=== PATIENT | female | born 1995 ===

== ENCOUNTER 2016-08-05 20:12 | Emergency (ER) | payer SELFPAY ==
[2016-08-05 20:28] VITALS: BP 115/69; PULSE 70; RESP 18; TEMP 96.2; O2SAT 100
--- NOTE | 2016-08-05 21:18 | ED PDOC ---
HPI: Abdomen Time Seen by Provider: 08/05/16 20:50 Chief Complaint (Nursing): Abdominal Pain Chief Complaint (Provider): Abdominal Pain History Per: Patient History/Exam Limitations: no limitations Onset/Duration Of Symptoms: Hrs (x5) Outside of [place] travel?: No Current Symptoms Are (Timing): Still Present Severity: Moderate Location Of Pain/Discomfort: RLQ Quality Of Discomfort: Other (nonradiating) Associated Symptoms: denies: Nausea, Vomiting Last Bowel Movement: Today (normal) Additional Complaint(s): Andrew Gupta is a 21 year old female, healthy with no pertinent past medical history, who presents to the ED on 08/05/16 for the evaluation of moderate RLQ abdominal pain that she has experienced for approximately 5 hours. Pain, further described as non-radiating, had reportedly started while the patient was at rest. Denies nausea, vomiting or urinary symptoms and reports that her bowel movements have been normal. Of note, patient has a secondary complaint of a mild headache but states that she gets similar headaches often. PMD: none Past Medical History Reviewed: Historical Data, Nursing Documentation, Vital Signs Vital Signs: Last Vital Signs Temp 96.2 F L 08/05/16 20:26 Pulse 70 08/05/16 20:26 Resp 18 08/05/16 20:26 BP 115/69 08/05/16 20:26 Pulse Ox 100 08/06/16 00:25 - Medical History PMH: No Chronic Diseases - Surgical History Surgical History: No Surg Hx - Family History Family History: States: Unknown Family Hx - Social History Current smoker - smoking cessation education provided: No Alcohol: Social Drugs: Denies - Home Medications Home Medications: Ambulatory Orders Medication Instructions Recorded Acetaminophen [Tylenol] 1,000 mg PO PRN PRN 03/22/15 Ibuprofen [Motrin] 600 mg PO Q6 PRN #20 tab 03/22/15 Metoclopramide Hydrochloride 10 mg PO TID PRN #10 tab 03/22/15 [Reglan] Acetaminophen with Codeine 1 each PO Q6H PRN #15 tablet 11/29/15 [Tylenol with Codeine #3 Tablet] Ibuprofen 600 mg PO Q6H PRN #20 tab 11/29/15 Albuterol HFA [Ventolin HFA 90 1 puff IH Q4 PRN #1 inh 02/22/16 mcg/actuation (8 g)] Fluticasone Nasal [Flonase] 1 actuation NS BID #1 bottle 02/22/16 Ibuprofen [Motrin Tab] 1 tab PO Q6 PRN #15 tab 02/22/16 Oseltamivir [Tamiflu] 75 mg PO BID #9 cap 02/22/16 guaiFENesin/Dextromethorphan 1 - 2 tab PO Q12 #20 tab 02/22/16 [guaiFENesin/DM 600-30 mg] Promethazine HCl/Codeine 5 ml PO Q6H PRN #200 ml 05/26/16 [Prometh-Codein 6.25-10 mg/5 ml] Cyclobenzaprine [Cyclobenzaprine 10 mg PO BID #15 tab 08/06/16 HCl] Ibuprofen [Motrin Tab] 600 mg PO Q6 #30 tab 08/06/16 - Allergies Allergies/Adverse Reactions: Allergies Allergy/AdvReac Type Severity Reaction Status Date / Time No Known Allergies Allergy Verified 03/22/15 05:26 Review of Systems ROS Statement: Except As Marked, All Systems Reviewed And Found Negative Gastrointestinal: Positive for: Abdominal Pain (RLQ, nonradiating). Negative for: Nausea, Vomiting Genitourinary Female: Negative for: Dysuria, Frequency, Hematuria Neurological: Positive for: Headache (mild) Physical Exam - Reviewed Nursing Documentation Reviewed: Yes Vital Signs Reviewed: Yes - Physical Exam Appears: Positive for: Non-toxic, No Acute Distress Head Exam: Positive for: ATRAUMATIC, NORMOCEPHALIC Skin: Positive for: Normal Color, Warm, Dry Cardiovascular/Chest: Positive for: Regular Rate, Rhythm. Negative for: Murmur Respiratory: Positive for: Normal Breath Sounds. Negative for: Respiratory Distress Gastrointestinal/Abdominal: Positive for: Soft, Tenderness (mild RLQ) Pelvic Exam: Positive for: External Exam Normal, Tender Adnexa (right), Other ( exam chaperoned by Zulma Francisco RN) Back: Positive for: Normal Inspection Neurologic/Psych: Positive for: Alert, Oriented - Laboratory Results Result Diagrams: 08/05/16 21:15 08/05/16 21:15 - ECG O2 Sat by Pulse Oximetry: 100 (RA) Pulse Ox Interpretation: Normal Medical Decision Making Medical Decision Makin:50 Initial Impression: ovarian cyst vs ovarian cyst rupture, less likely ovarian torsion, appendicitis Initial Plan: * Transvaginal US * Labs * Upreg * Udip * Urinalysis * Toradol 30mg IVP * Reevaluation 3: US impression: No acute pathology. No solid pelvic mass. No abnormal fluid collections. A small simple right ovarian cyst (13 mm size) is noted. There is no evidence of ovarian torsion. 7: CT A/P impression: 1. No CT evidence of appendicitis. 0022: Patient feels better and instructed to f/u at [facility]. Scribe Attestation: Documented by Jane Alfaro, acting as a scribe for Gold Mccarthy MD. Provider Scribe Attestation: All medical record entries made by the Scribe were at my direction and personally dictated by me. I have reviewed the chart and agree that the record accurately reflects my personal performance of the history, physical exam, medical decision making, and the department course for this patient. I have also personally directed, reviewed, and agree with the discharge instructions and disposition. Disposition - Clinical Impression Clinical Impression: Abdominal pain, Ovarian cyst - Patient ED Disposition Is Patient to be Admitted: No - Disposition [facility]errals: [facility] [Provider Group] Disposition: Routine/Home Disposition Time: 00:22 Condition: IMPROVED Prescriptions: Cyclobenzaprine [Cyclobenzaprine HCl] 10 mg PO BID #15 tab Ibuprofen [Motrin Tab] 600 mg PO Q6 #30 tab Instructions: Ovarian Cyst (ED), Abdominal Pain (ED) Forms: [facility] ED School/Work Excuse
[2016-08-05 21:31] LABS: BASO % 0.5 % (0.0-2.0); EOS # 0.1 K/uL (0.0-0.7); EOS % 0.8 % (0.0-4.0); HEMATOCRIT 40.2 % (34.0-47.0); LYMPH # 2.3 K/uL (1.0-4.3); LYMPH % 23.5 % (20.0-40.0); MEAN CELL VOLUME 92.8 fl (81.0-99.0); MEAN CORPUSCULAR HEMOGLOBIN 31.4 pg (27.0-31.0); MEAN CORPUSCULAR HGB CONC 33.8 g/dL (33.0-37.0); MEAN PLATELET VOLUME 9.1 fl (7.2-11.7); MONO # 0.9 K/uL (0.0-0.8); MONO % 9.2 % (0.0-10.0); NEUT # 6.4 K/uL (1.8-7.0); NRBC % 0.1 % (0.0-0.0); RED CELL DISTRIBUTION WIDTH 14.7 % (11.5-14.5); WHITE BLOOD COUNT 9.8 K/uL (4.8-10.8)
[2016-08-05 21:39] LABS: RBC URINE 3 /hpf (0-3); URINE BACTERIA RARE (<OCC); URINE BILIRUBIN NEGATIVE (NEGATIVE); URINE BLOOD NEGATIVE (NEGATIVE); URINE COLOR YELLOW (YELLOW); URINE GLUCOSE (UA) NEG (Normal); URINE KETONE TRACE mg/dL (NEGATIVE); URINE LEUKOCYTE ESTERASE MOD Leu/uL (Negative); URINE PROTEIN NEGATIVE (NEGATIVE); WBC URINE 3 /hpf (0-5)
[2016-08-05 21:48] LABS: ALB/GLOB RATIO 1.5 (1.0-2.1); ALKALINE PHOSPHATASE 90 U/L (38-126); ALT/SGPT 22 U/L (9-52); AST/SGOT 24 U/L (14-36); BILIRUBIN,TOTAL 0.5 mg/dl (0.2-1.3); BLOOD UREA NITROGEN 12 mg/dl (7-17); CALCIUM 9.6 mg/dL (8.4-10.2); CARBON DIOXIDE 26 mmol/L (22-30); CHLORIDE 102 mmol/L (98-107); GFR AFRICAN-AMERICAN > 60; GLUCOSE,RANDOM 92 mg/dL (65-105); POTASSIUM 3.6 MMOL/L (3.6-5.0); SODIUM 141 mmol/l (132-148); TOTAL PROTEIN 7.1 G/DL (6.3-8.2)
[2016-08-05] MEDS ORDERED: Iohexol 300 100 ML IJ ONE (23:13)
[2016-08-05] MEDS ORDERED: Sodium Chloride 0.9% 50 ML IV ONE (23:13)
--- NOTE | 2016-08-05 23:57 | CT ---
EXAM: CT Abdomen and Pelvis With Intravenous Contrast CLINICAL HISTORY: 21 years old, female; Pain; Abdominal pain; Localized; Right lower quadrant (rlq); Additional info: Rlq pain, R/O appendicitis. Sent ed physician doc. With request TECHNIQUE: Axial computed tomography images of the abdomen and pelvis with intravenous contrast. This CT exam was performed using one or more of the following dose reduction techniques: automated exposure control, adjustment of the mA and/or kV according to patient size, and/or use of iterative reconstruction technique. Coronal and sagittal reformatted images were created and reviewed. CONTRAST: 90 mL of [id number] administered intravenously. COMPARISON: US - TRANSVAGINAL 08/05/2016 9:52:54 PM FINDINGS: Lower thorax: Minimal atelectasis. ABDOMEN: Liver: Unremarkable. No mass. Gallbladder and bile ducts: No calcified stones. No ductal dilation. Pancreas: No ductal dilation. No mass. Spleen: No splenomegaly. Adrenals: No mass. Kidneys and ureters: No mass. No hydronephrosis. Stomach and bowel: No definite mural thickening. No obstruction. Appendix: Normal caliber. No inflammation. PELVIS: Bladder: Unremarkable. Reproductive: Unremarkable as visualized ABDOMEN and PELVIS: Intraperitoneal space: Small free fluid within pelvis. No free air. Bones/joints: No acute fracture. Soft tissues: Tiny umbilical hernia containing fat. Vasculature: Unremarkable. No abdominal aortic aneurysm. Lymph nodes: Few subcentimeter short axis mesenteric lymph nodes, nonspecific. IMPRESSION: 1. No CT evidence of appendicitis. 2. Incidental/non-acute findings are described above.
--- NOTE | 2016-08-06 08:54 | US ---
Pelvic ultrasound History: Right lower quadrant pain. Comparison: CT from performed on the same day. Technique: Transvaginal ultrasonography of the pelvis. Findings: The uterus is anteverted and measures 8 x 5 x 4.5 centimeters. No intrauterine gestational sac identified. The endometrium is unremarkable in appearance and measures approximately 6-7 millimeters. (Please correlate with patient's menstrual cycle). Few nabothian cysts in the cervix. Otherwise no definite cervical abnormality identified. The right ovary measures 3.5 x 3.4 x 2.4 centimeters. The left ovary measures 3.3 x 3.1 x 2.3 centimeters. Normal Doppler flow seen. Prominent follicle versus cyst measuring 1.4 centimeters in the right ovary. No significant free fluid in the cul-de-sac. Impression: No evidence of acute ovarian torsion. No intrauterine gestational sac. Please note that this evaluation is predicated on negative status.
== END 2016-08-06 00:31 | disposition home or self-care (01) ==
LOC: H.ER 20:12
DX: N83.209 Unspecified ovarian cyst, unspecified side (principal); R10.31 Right lower quadrant pain
CPT/HCPCS: 74177; 76830; 80053; 81003; 81025; 85025; 96374; 99283; J1885; Q9967

== ENCOUNTER 2016-09-13 21:18 | Emergency (ER) | payer SELFPAY ==
[2016-09-13 21:52] VITALS: BP 110/71; PULSE 88; RESP 18; TEMP 98.5; O2SAT 100
--- NOTE | 2016-09-13 22:05 | ED PDOC ---
HPI: CCC, URI, Sore Throat Time Seen by Provider: 09/13/16 21:49 Chief Complaint (Nursing): Cough, Cold, Congestion Chief Complaint (Provider): Cough, runny nose, watery eyes x 1 days History Per: Patient History/Exam Limitations: no limitations Have you had recent travel within the past 21 days to any of the following countries: [place], [place], [place] or [place]?: No Onset/Duration Of Symptoms: Days (1) Current Symptoms Are (Timing): Still Present Associated Symptoms: Sore Throat, Cough, Myalgias, Nasal Congestion. denies: Fever, Chills, Sputum, Vomiting, Diarrhea Ear Symptoms: Bilateral: None Past Medical History Reviewed: Historical Data, Nursing Documentation, Vital Signs Vital Signs: Last Vital Signs Temp 98.5 F 09/13/16 21:48 Pulse 88 09/13/16 21:48 Resp 18 09/13/16 21:48 BP 110/71 09/13/16 21:48 Pulse Ox 100 09/13/16 21:48 - Medical History PMH: No Chronic Diseases Denies: Diabetes, Hepatitis, HIV, HTN, Seizures, Sexually Transmitted Disease - Surgical History Surgical History: No Surg Hx - Family History Family History: States: Unknown Family Hx - Home Medications Home Medications: Ambulatory Orders Medication Instructions Recorded Acetaminophen [Tylenol] 1,000 mg PO PRN PRN 03/22/15 Ibuprofen [Motrin] 600 mg PO Q6 PRN #20 tab 03/22/15 Metoclopramide Hydrochloride 10 mg PO TID PRN #10 tab 03/22/15 [Reglan] Acetaminophen with Codeine 1 each PO Q6H PRN #15 tablet 11/29/15 [Tylenol with Codeine #3 Tablet] Ibuprofen 600 mg PO Q6H PRN #20 tab 11/29/15 Albuterol HFA [Ventolin HFA 90 1 puff IH Q4 PRN #1 inh 02/22/16 mcg/actuation (8 g)] Fluticasone Nasal [Flonase] 1 actuation NS BID #1 bottle 02/22/16 Ibuprofen [Motrin Tab] 1 tab PO Q6 PRN #15 tab 02/22/16 Oseltamivir [Tamiflu] 75 mg PO BID #9 cap 02/22/16 guaiFENesin/Dextromethorphan 1 - 2 tab PO Q12 #20 tab 02/22/16 [guaiFENesin/DM 600-30 mg] Promethazine HCl/Codeine 5 ml PO Q6H PRN #200 ml 05/26/16 [Prometh-Codein 6.25-10 mg/5 ml] Cyclobenzaprine [Cyclobenzaprine 10 mg PO BID #15 tab 08/06/16 HCl] Ibuprofen [Motrin Tab] 600 mg PO Q6 #30 tab 08/06/16 Fexofenadine/Pseudoephedrine 1 each PO BID PRN #12 tab.er.12h 09/13/16 [Nu-D 12 Hour Tablet] Prednisone 50 mg PO ONCE #3 tablet 09/13/16 - Allergies Allergies/Adverse Reactions: Allergies Allergy/AdvReac Type Severity Reaction Status Date / Time No Known Allergies Allergy Verified 09/13/16 21:48 Review of Systems ROS Statement: Except As Marked, All Systems Reviewed And Found Negative ENT: Positive for: Nose Congestion, Throat Pain. Negative for: Ear Pain, Nose Pain Respiratory: Positive for: Cough Physical Exam - Reviewed Nursing Documentation Reviewed: Yes Vital Signs Reviewed: Yes - Physical Exam Appears: Positive for: Well, Non-toxic, No Acute Distress Head Exam: Positive for: ATRAUMATIC, NORMAL INSPECTION, NORMOCEPHALIC Skin: Positive for: Normal Color, Warm, DRY Eye Exam: Positive for: EOMI, Normal appearance, PERRL ENT: Positive for: Normal ENT Inspection Neck: Positive for: Normal, Painless ROM Cardiovascular/Chest: Positive for: Regular Rate, Rhythm Respiratory: Positive for: CNT, Normal Breath Sounds Gastrointestinal/Abdominal: Positive for: Normal Exam, Bowel Sounds, Soft Back: Positive for: Normal Inspection Extremity: Positive for: Normal ROM Neurologic/Psych: Positive for: Alert, Oriented - ECG O2 Sat by Pulse Oximetry: 100 Disposition - Clinical Impression Clinical Impression: Viral respiratory illness - Patient ED Disposition Is Patient to be Admitted: No Counseled Patient/Family Regarding: Diagnosis, Need For Followup, Rx Given - Disposition Referrals: [facility] [Outside] Disposition: Routine/Home Disposition Time: 22:03 Condition: GOOD Prescriptions: Fexofenadine/Pseudoephedrine [Nu-D 12 Hour Tablet] 1 each PO BID PRN #12 tab.er.12h PRN Reason: Cough And Congestion Prednisone 50 mg PO ONCE #3 tablet Instructions: Allergies (ED)
== END 2016-09-13 22:21 | disposition home or self-care (01) ==
LOC: H.ER 21:18
DX: B34.9 Viral infection, unspecified (principal)

== ENCOUNTER 2016-10-17 16:01 | Emergency (ER) | payer MEDICAID ==
--- NOTE | 2016-10-17 16:51 | ED PDOC ---
HPI: Female Pain Time Seen by Provider: 10/17/16 16:27 Chief Complaint (Nursing): Female Genitourinary Chief Complaint (Provider): Abdominal pain, vaginal bleeding History Per: Patient History/Exam Limitations: no limitations Onset/Duration Of Symptoms: Hrs Current Symptoms Are (Timing): Still Present Severity: Moderate Quality Of Discomfort: "Pain" Additional History Per: Patient Additional Complaint(s): The pt is a 21yo female, pMHx of ovarian cyst, presents to the ED for evaluation of vaginal bleeding and dysuria with associated lower abdominal pain since this morning. Pt admit to having unprotected sex. she denies any fever or vaginal discharge. Pt denies any other medical complaints. Abnormal Vaginal Bleeding: Yes Past Medical History Reviewed: Historical Data, Nursing Documentation, Vital Signs Vital Signs: Last Vital Signs Temp 97.2 F L 10/17/16 16:14 Pulse 74 10/17/16 16:14 Resp 16 10/17/16 16:14 BP 112/64 10/17/16 16:14 Pulse Ox 99 10/17/16 16:14 - Medical History PMH: Denies: Diabetes, Hepatitis, HIV, HTN, Seizures, Sexually Transmitted Disease Other PMH: ovarian cyst - Family History Family History: States: Unknown Family Hx - Home Medications Home Medications: Ambulatory Orders Medication Instructions Recorded Acetaminophen [Tylenol] 1,000 mg PO PRN PRN 03/22/15 Ibuprofen [Motrin] 600 mg PO Q6 PRN #20 tab 03/22/15 Metoclopramide Hydrochloride 10 mg PO TID PRN #10 tab 03/22/15 [Reglan] Acetaminophen with Codeine 1 each PO Q6H PRN #15 tablet 11/29/15 [Tylenol with Codeine #3 Tablet] Ibuprofen 600 mg PO Q6H PRN #20 tab 11/29/15 Albuterol HFA [Ventolin HFA 90 1 puff IH Q4 PRN #1 inh 02/22/16 mcg/actuation (8 g)] Fluticasone Nasal [Flonase] 1 actuation NS BID #1 bottle 02/22/16 Ibuprofen [Motrin Tab] 1 tab PO Q6 PRN #15 tab 02/22/16 Oseltamivir [Tamiflu] 75 mg PO BID #9 cap 02/22/16 guaiFENesin/Dextromethorphan 1 - 2 tab PO Q12 #20 tab 02/22/16 [guaiFENesin/DM 600-30 mg] Promethazine HCl/Codeine 5 ml PO Q6H PRN #200 ml 05/26/16 [Prometh-Codein 6.25-10 mg/5 ml] Cyclobenzaprine [Cyclobenzaprine 10 mg PO BID #15 tab 08/06/16 HCl] Ibuprofen [Motrin Tab] 600 mg PO Q6 #30 tab 08/06/16 Fexofenadine/Pseudoephedrine 1 each PO BID PRN #12 tab.er.12h 09/13/16 [Nu-D 12 Hour Tablet] Prednisone 50 mg PO ONCE #3 tablet 09/13/16 Ciprofloxacin HCl [Cipro] 500 mg PO BID #20 tab 10/17/16 - Allergies Allergies/Adverse Reactions: Allergies Allergy/AdvReac Type Severity Reaction Status Date / Time No Known Allergies Allergy Verified 10/17/16 16:11 Review of Systems ROS Statement: Except As Marked, All Systems Reviewed And Found Negative Constitutional: Negative for: Fever Gastrointestinal: Positive for: Abdominal Pain Genitourinary Female: Positive for: Vaginal Bleeding. Negative for: Vaginal Discharge Physical Exam - Reviewed Nursing Documentation Reviewed: Yes Vital Signs Reviewed: Yes - Physical Exam Appears: Positive for: Well, Non-toxic, No Acute Distress Head Exam: Positive for: ATRAUMATIC, NORMAL INSPECTION, NORMOCEPHALIC Skin: Positive for: Normal Color, Warm, DRY Eye Exam: Positive for: Normal appearance Neck: Positive for: Normal, Supple Cardiovascular/Chest: Positive for: Regular Rate, Rhythm Respiratory: Positive for: Normal Breath Sounds. Negative for: Respiratory Distress Gastrointestinal/Abdominal: Positive for: Normal Exam, Soft. Negative for: Tenderness Pelvic Exam: Positive for: No Cerv. Motion Tender, Blood (scant bleeding noted in vaginal vault), Tender Adnexa (mild tenderness left adnexa), Other ( Chaperoned by pt's nurse Peachstevan). Negative for: Mass Neurologic/Psych: Positive for: Alert, Oriented - ECG O2 Sat by Pulse Oximetry: 99 (RA) Pulse Ox Interpretation: Normal Medical Decision Making Medical Decision Making: Time: 1638 Impression: Vaginal bleeding w/ associated abdominal pain Plan: * US transvaginal * Chlamydia/GC RNA, TMA * Reassess Scribe Attestation: Documented by Keira Preethi acting as a scribe for Lee Corona MD. Provider Attestation: All medical record entries made by the Scribe were at my direction and personally dictated by me. I have reviewed the chart and agree that the record accurately reflects my personal performance of the history, physical exam, medical decision making, and the department course for this patient. I have also personally directed, reviewed, and agree with the discharge instructions and disposition. Disposition - Clinical Impression Clinical Impression: Urinary tract infection - Patient ED Disposition Is Patient to be Admitted: No Counseled Patient/Family Regarding: Studies Performed, Diagnosis, Need For Followup, Rx Given - Disposition Referrals: [facility] [Outside] Disposition: Routine/Home Disposition Time: 18:15 Condition: FAIR Prescriptions: Ciprofloxacin HCl [Cipro] 500 mg PO BID #20 tab Instructions: Urinary Tract Infection in Women (ED)
--- NOTE | 2016-10-17 18:23 | US ---
HISTORY: Abdominal pain, aged Michelle soreness. Duration of symptoms: 3 days. LMP September 2016 precise date unknown COMPARISON: 08/05/2016 TECHNIQUE: Transvaginal only. Real -time technique with 2D, duplex and color Doppler FINDINGS: UTERUS: Measures 3.3 x 4.8 x 8.6 cm. Normal in size and appearance. No fibroid or other mass lesion seen. ENDOMETRIUM: Measures 7.8 mm in diameter. No ultrasound findings to suggest gestational sac, fluid, debris, mass or polyp or other pathologic process within the endometrium. CERVIX: No cervical abnormality identified. RIGHT OVARY: Measures 1.9 x 3.1 cm. No solid mass. Normal flow. Multiple subcentimeter follicles. Adnexal cyst apparent on the prior study no longer seen LEFT OVARY: Measures 1.8 x 2.5 cm. No solid mass. Normal flow. FREE FLUID: No significant free fluid noted. OTHER FINDINGS: None. IMPRESSION: No significant or acute findings to account for/ related to the clinical presentation.
[2016-10-17 18:42] VITALS: BP 126/78; PULSE 78; RESP 20; TEMP 97.6; O2SAT 98
== END 2016-10-17 19:02 | disposition home or self-care (01) ==
LOC: H.ER 16:01
DX: N39.0 Urinary tract infection, site not specified (principal); R10.9 Unspecified abdominal pain

== ENCOUNTER 2017-05-09 12:29 | Emergency (ER) | payer MEDICAID, OTHER ==
[2017-05-09 12:52] VITALS: PULSE 74
--- NOTE | 2017-05-09 12:59 | ED PDOC ---
HPI: Abdomen Time Seen by Provider: 05/09/17 12:47 Chief Complaint (Nursing): Abdominal Pain Chief Complaint (Provider): Asbdominal pain History Per: Patient Additional Complaint(s): 22 yo female, no PMH, presents to ED with complaints of Lower abdominal cramping and nausea since last night. Denies urinary symptoms. No episodes of vomiting no diarrhea, constipation, fever or chills. Pt also notes mild vaginal discharge No concern for STDs Past Medical History Reviewed: Nursing Documentation, Vital Signs Vital Signs: Last Vital Signs Temp 98.2 F 05/09/17 12:49 Pulse 74 05/09/17 12:49 Resp 16 05/09/17 12:49 BP 114/74 05/09/17 12:49 Pulse Ox 99 05/09/17 12:59 - Medical History PMH: No Chronic Diseases Denies: Diabetes, Hepatitis, HIV, HTN, Seizures, Sexually Transmitted Disease - Surgical History Surgical History: No Surg Hx - Family History Family History: States: Unknown Family Hx - Living Arrangements Living Arrangements: With Family - Social History Current smoker - smoking cessation education provided: No Alcohol: Social Drugs: Denies - Home Medications Home Medications: Ambulatory Orders Medication Instructions Recorded Acetaminophen [Tylenol] 1,000 mg PO PRN PRN 03/22/15 Ibuprofen [Motrin] 600 mg PO Q6 PRN #20 tab 03/22/15 Metoclopramide Hydrochloride 10 mg PO TID PRN #10 tab 03/22/15 [Reglan] Acetaminophen with Codeine 1 each PO Q6H PRN #15 tablet 11/29/15 [Tylenol with Codeine #3 Tablet] Ibuprofen 600 mg PO Q6H PRN #20 tab 11/29/15 Albuterol HFA [Ventolin HFA 90 1 puff IH Q4 PRN #1 inh 02/22/16 mcg/actuation (8 g)] Fluticasone Nasal [Flonase] 1 actuation NS BID #1 bottle 02/22/16 Ibuprofen [Motrin Tab] 1 tab PO Q6 PRN #15 tab 02/22/16 Oseltamivir [Tamiflu] 75 mg PO BID #9 cap 02/22/16 guaiFENesin/Dextromethorphan 1 - 2 tab PO Q12 #20 tab 02/22/16 [guaiFENesin/DM 600-30 mg] Promethazine HCl/Codeine 5 ml PO Q6H PRN #200 ml 05/26/16 [Prometh-Codein 6.25-10 mg/5 ml] Cyclobenzaprine [Cyclobenzaprine 10 mg PO BID #15 tab 08/06/16 HCl] Ibuprofen [Motrin Tab] 600 mg PO Q6 #30 tab 08/06/16 Fexofenadine/Pseudoephedrine 1 each PO BID PRN #12 tab.er.12h 09/13/16 [Nu-D 12 Hour Tablet] Prednisone 50 mg PO ONCE #3 tablet 09/13/16 Ciprofloxacin HCl [Cipro] 500 mg PO BID #20 tab 10/17/16 Fluconazole [Diflucan] 150 mg PO ACB #1 tab 05/09/17 Ibuprofen [Motrin] 600 mg PO Q6 #20 tab 05/09/17 - Allergies Allergies/Adverse Reactions: Allergies Allergy/AdvReac Type Severity Reaction Status Date / Time No Known Allergies Allergy Verified 10/17/16 16:11 Review of Systems ROS Statement: Except As Marked, All Systems Reviewed And Found Negative Gastrointestinal: Positive for: Abdominal Pain Physical Exam - Reviewed Nursing Documentation Reviewed: Yes Vital Signs Reviewed: Yes - Physical Exam Appears: Positive for: Well, Non-toxic, No Acute Distress Head Exam: Positive for: ATRAUMATIC, NORMAL INSPECTION, NORMOCEPHALIC Skin: Positive for: Normal Color, Warm, DRY Eye Exam: Positive for: EOMI, Normal appearance, PERRL ENT: Positive for: Normal ENT Inspection Neck: Positive for: Normal, Painless ROM Cardiovascular/Chest: Positive for: Regular Rate, Rhythm Respiratory: Positive for: CNT, Normal Breath Sounds Gastrointestinal/Abdominal: Positive for: Normal Exam, Bowel Sounds, Soft. Negative for: Tenderness Pelvic Exam: Positive for: External Exam Normal, Discharge (thick white vaginal discharge) Back: Positive for: Normal Inspection Extremity: Positive for: Normal ROM Neurologic/Psych: Positive for: Alert, Oriented - Laboratory Results Result Diagrams: 05/09/17 15:11 05/09/17 15:11 - ECG O2 Sat by Pulse Oximetry: 99 Medical Decision Making Medical Decision Making: Labs resulted and reviewed with Pt who demonstrated full understanding IMPRESSION: Unremarkable pelvic ultrasound. Given RX for Motrin PO and Diflucan GC/C and Genital cultures obtained and sent Disposition - Clinical Impression Clinical Impression: Pelvic pain - Patient ED Disposition Is Patient to be Admitted: No - Disposition Disposition: Routine/Home Disposition Time: 17:42 Condition: GOOD Forms: [facility] ([employer])
[2017-05-09 14:34] LABS: SQUAMOUS EPITHIAL 6 /hpf (0-5); URINE BACTERIA RARE (<OCC); URINE BILIRUBIN NEGATIVE (NEGATIVE); URINE BLOOD NEGATIVE (NEGATIVE); URINE CLARITY CLOUDY (Clear); URINE COLOR YELLOW (YELLOW); URINE GLUCOSE (UA) NEG (Normal); URINE LEUKOCYTE ESTERASE NEG Leu/uL (Negative); URINE NITRATE NEGATIVE (NEGATIVE); URINE PROTEIN NEGATIVE (NEGATIVE); URINE UROBILINOGEN 0.2-1.0 mg/dL (0.2-1.0)
[2017-05-09 15:29] LABS: ALB/GLOB RATIO 1.5 (1.0-2.1); ALBUMIN 4.2 g/dL (3.5-5.0); ALT/SGPT 32 U/L (9-52); AST/SGOT 19 U/L (14-36); BLOOD UREA NITROGEN 12 mg/dl (7-17); CALCIUM 9.5 mg/dL (8.4-10.2); GFR AFRICAN-AMERICAN > 60; GFR NON-AFRICAN AMERICAN > 60
[2017-05-09 15:33] LABS: BASO % 0.3 % (0.0-2.0); EOS # 0.1 K/uL (0.0-0.7); HEMOGLOBIN 14.2 g/dL (12.0-16.0); LYMPH # 1.6 K/uL (1.0-4.3); LYMPH % 19.4 % (20.0-40.0); MEAN CELL VOLUME 98.1 fl (81.0-99.0); MEAN CORPUSCULAR HEMOGLOBIN 32.8 pg (27.0-31.0); MEAN CORPUSCULAR HGB CONC 33.4 g/dL (33.0-37.0); MEAN PLATELET VOLUME 9.6 fl (7.2-11.7); MONO # 0.5 K/uL (0.0-0.8); MONO % 5.6 % (0.0-10.0); NEUT % 73.7 % (50.0-75.0); RBC 4.34 Mil/uL (3.80-5.20); RED CELL DISTRIBUTION WIDTH 13.4 % (11.5-14.5); WHITE BLOOD COUNT 8.1 K/uL (4.8-10.8)
--- NOTE | 2017-05-09 15:46 | US ---
HISTORY: ovarian cyst, pain r/o torsion COMPARISON: None available. TECHNIQUE: Grayscale, color Doppler and spectral evaluation of the pelvis performed transvaginally FINDINGS: UTERUS: Measures 7.4 x 3.8 x 4.2 cm. Anteverted, retroflexed. Normal in size and appearance. No fibroid or other mass lesion seen. ENDOMETRIUM: Measures 6 mm in diameter. Unremarkable. CERVIX: No cervical abnormality identified. RIGHT OVARY: Measures 3.1 x 2.2 x 2.5 cm. No solid mass. Normal flow. LEFT OVARY: Measures 3.4 x 1.9 x 2.0 cm. No solid mass. Normal flow. FREE FLUID: No significant free fluid noted. OTHER FINDINGS: None. IMPRESSION: Unremarkable pelvic ultrasound.
[2017-05-09 17:50] VITALS: BP 110/70; RESP 20; TEMP 98.5; O2SAT 98
== END 2017-05-09 17:51 | disposition home or self-care (01) ==
LOC: H.ER 12:29
DX: R10.2 Pelvic and perineal pain (principal)
CPT/HCPCS: 76830; 80053; 81003; 81025; 85025; 87070; 87491; 87591; 96374; 99284; J1885

== ENCOUNTER 2017-09-07 15:32 | Emergency (ER) | payer MEDICAID ==
[2017-09-07 15:57] VITALS: BP 129/83; PULSE 78; RESP 16; TEMP 98.2; O2SAT 99
--- NOTE | 2017-09-07 17:21 | ED PDOC ---
HPI: Female Pain Time Seen by Provider: 09/07/17 16:02 Chief Complaint (Nursing): Female Genitourinary Chief Complaint (Provider): lower abdominal pain History Per: Patient History/Exam Limitations: no limitations Onset/Duration Of Symptoms: Days (5) Current Symptoms Are (Timing): Still Present Severity: Moderate Pain Scale Rating Of: 4 Quality Of Discomfort: Cramping Associated Symptoms: Other (vaginal discharge). denies: Fever, Chills, Nausea, Vomiting, Urinary Symptoms Alleviating Factors: None Additional Complaint(s): 22 yr old presents to ED with complaint of lower abdominal pain x 5 days. No significant PMHx. Denies nausea, vomiting, breast tenderness, vaginal discharge, vaginal pruritus, constipation or diarrhea. Pain is crampy, 4/10, intermittent, not alleviated or worsened by anything. Denies hx of STD's or fibroids. She is currently sexually active with same male partner of 5 months, does not use protection. Associated symptoms include vaginal bleeding during intercourse. Past Medical History Vital Signs: Last Vital Signs Temp 98.2 F 09/07/17 15:55 Pulse 78 09/07/17 15:55 Resp 16 09/07/17 15:55 BP 129/83 09/07/17 15:55 Pulse Ox 99 09/07/17 15:55 - Medical History PMH: Denies: Diabetes, Hepatitis, HIV, HTN, Seizures, Sexually Transmitted Disease - Family History Family History: States: Unknown Family Hx - Immunization History Hx Tetanus Toxoid Vaccination: No Hx Influenza Vaccination: No Hx Pneumococcal Vaccination: No - Home Medications Home Medications: Ambulatory Orders Medication Instructions Recorded Acetaminophen [Tylenol] 1,000 mg PO PRN PRN 03/22/15 Ibuprofen [Motrin] 600 mg PO Q6 PRN #20 tab 03/22/15 Metoclopramide Hydrochloride 10 mg PO TID PRN #10 tab 03/22/15 [Reglan] Acetaminophen with Codeine 1 each PO Q6H PRN #15 tablet 11/29/15 [Tylenol with Codeine #3 Tablet] Ibuprofen 600 mg PO Q6H PRN #20 tab 11/29/15 Albuterol HFA [Ventolin HFA 90 1 puff IH Q4 PRN #1 inh 02/22/16 mcg/actuation (8 g)] Fluticasone Nasal [Flonase] 1 actuation NS BID #1 bottle 02/22/16 Ibuprofen [Motrin Tab] 1 tab PO Q6 PRN #15 tab 02/22/16 Oseltamivir [Tamiflu] 75 mg PO BID #9 cap 02/22/16 guaiFENesin/Dextromethorphan 1 - 2 tab PO Q12 #20 tab 02/22/16 [guaiFENesin/DM 600-30 mg] Promethazine HCl/Codeine 5 ml PO Q6H PRN #200 ml 05/26/16 [Prometh-Codein 6.25-10 mg/5 ml] Cyclobenzaprine [Cyclobenzaprine 10 mg PO BID #15 tab 08/06/16 HCl] Ibuprofen [Motrin Tab] 600 mg PO Q6 #30 tab 08/06/16 Fexofenadine/Pseudoephedrine 1 each PO BID PRN #12 tab.er.12h 09/13/16 [Nu-D 12 Hour Tablet] Prednisone 50 mg PO ONCE #3 tablet 09/13/16 Ciprofloxacin HCl [Cipro] 500 mg PO BID #20 tab 10/17/16 Fluconazole [Diflucan] 150 mg PO ACB #1 tab 05/09/17 Ibuprofen [Motrin] 600 mg PO Q6 #20 tab 05/09/17 Ibuprofen [Motrin] 600 mg PO TID 7 Days tab 09/07/17 - Allergies Allergies/Adverse Reactions: Allergies Allergy/AdvReac Type Severity Reaction Status Date / Time No Known Allergies Allergy Verified 09/07/17 15:54 - Laboratory Results Urine POC: Negative Urine dip results: Negative for: Leukocyte Esterase, Nitrate - ECG O2 Sat by Pulse Oximetry: 99 - Progress ED Course And Treament: -ibuprofen administered -17:26 patient improved Condition: Re-examined, Improved Disposition - Clinical Impression Clinical Impression: Abdominal pain - Patient ED Disposition Is Patient to be Admitted: No Counseled Patient/Family Regarding: Need For Followup, Rx Given - Disposition [facility]] Disposition: Routine/Home Disposition Time: 17:28 Condition: STABLE Prescriptions: Ibuprofen [Motrin] 600 mg PO TID 7 Days tab Forms: [employer] ([place]err[place]ian)
== END 2017-09-07 17:53 | disposition home or self-care (01) ==
LOC: H.ER 15:32
DX: R10.9 Unspecified abdominal pain (principal)

== ENCOUNTER 2017-11-18 00:17 | Emergency (ER) | payer MEDICAID ==
[2017-11-18 00:25] VITALS: RESP 18; TEMP 98
[2017-11-18 02:33] LABS: SQUAMOUS EPITHIAL 3 /hpf (0-5); URINE BACTERIA OCC (<OCC); URINE BILIRUBIN NEGATIVE (NEGATIVE); URINE BLOOD NEGATIVE (NEGATIVE); URINE CLARITY SLIGHTY-CLOUDY (Clear); URINE COLOR YELLOW (YELLOW); URINE GLUCOSE (UA) NEG (Normal); URINE HYALINE CAST 0-2 /hpf (0-2); URINE LEUKOCYTE ESTERASE NEG Leu/uL (Negative); URINE PROTEIN NEGATIVE (NEGATIVE)
--- NOTE | 2017-11-18 03:27 | ED PDOC ---
HPI: Abdomen Time Seen by Provider: 11/18/17 00:35 Chief Complaint (Nursing): GI Problem History Per: Patient Additional Complaint(s): Pt. states on Monday she ate at a "[place] restaurant" and the following day she developed N/V/D which has improved over the past 2 days. Reports symptoms have resolved but she decided to come to ED as her 4 y/o daughter also has the same symptoms but have not resolved. Denies fever, recent travel, sick contacts , hematemesis, melena, hematochezia, BRBPR, previous abdominal surgeries. Past Medical History Reviewed: Historical Data, Nursing Documentation, Vital Signs Vital Signs: Last Vital Signs Temp 98.0 F 11/18/17 00:23 Pulse 74 11/18/17 00:23 Resp 18 11/18/17 00:23 BP 113/70 11/18/17 00:23 Pulse Ox 96 11/18/17 03:49 - Medical History PMH: Denies: Diabetes, Hepatitis, HIV, HTN, Seizures, Sexually Transmitted Disease - Surgical History Surgical History: No Surg Hx - Family History Family History: States: No Known Family Hx - Immunization History Hx Tetanus Toxoid Vaccination: No Hx Influenza Vaccination: No Hx Pneumococcal Vaccination: No - Home Medications Home Medications: Ambulatory Orders Medication Instructions Recorded Acetaminophen [Tylenol] 1,000 mg PO PRN PRN 03/22/15 Ibuprofen [Motrin] 600 mg PO Q6 PRN #20 tab 03/22/15 Metoclopramide Hydrochloride 10 mg PO TID PRN #10 tab 03/22/15 [Reglan] Acetaminophen with Codeine 1 each PO Q6H PRN #15 tablet 11/29/15 [Tylenol with Codeine #3 Tablet] Ibuprofen 600 mg PO Q6H PRN #20 tab 11/29/15 Albuterol HFA [Ventolin HFA 90 1 puff IH Q4 PRN #1 inh 02/22/16 mcg/actuation (8 g)] Fluticasone Nasal [Flonase] 1 actuation NS BID #1 bottle 02/22/16 Ibuprofen [Motrin Tab] 1 tab PO Q6 PRN #15 tab 02/22/16 Oseltamivir [Tamiflu] 75 mg PO BID #9 cap 02/22/16 guaiFENesin/Dextromethorphan 1 - 2 tab PO Q12 #20 tab 02/22/16 [guaiFENesin/DM 600-30 mg] Promethazine HCl/Codeine 5 ml PO Q6H PRN #200 ml 05/26/16 [Prometh-Codein 6.25-10 mg/5 ml] Cyclobenzaprine [Cyclobenzaprine 10 mg PO BID #15 tab 08/06/16 HCl] Ibuprofen [Motrin Tab] 600 mg PO Q6 #30 tab 08/06/16 Fexofenadine/Pseudoephedrine 1 each PO BID PRN #12 tab.er.12h 09/13/16 [Nu-D 12 Hour Tablet] Prednisone 50 mg PO ONCE #3 tablet 09/13/16 Ciprofloxacin HCl [Cipro] 500 mg PO BID #20 tab 10/17/16 Fluconazole [Diflucan] 150 mg PO ACB #1 tab 05/09/17 Ibuprofen [Motrin] 600 mg PO Q6 #20 tab 05/09/17 Ibuprofen [Motrin] 600 mg PO TID 7 Days tab 09/07/17 - Allergies Allergies/Adverse Reactions: Allergies Allergy/AdvReac Type Severity Reaction Status Date / Time No Known Allergies Allergy Verified 11/18/17 00:23 Review of Systems ROS Statement: Except As Marked, All Systems Reviewed And Found Negative Gastrointestinal: Positive for: Nausea, Vomiting, Abdominal Pain, Diarrhea Physical Exam - Physical Exam Appears: Positive for: Well, Non-toxic, No Acute Distress Skin: Positive for: Normal Color, Warm. Negative for: Rash Eye Exam: Positive for: Normal appearance Gastrointestinal/Abdominal: Positive for: Normal Exam, Bowel Sounds, Soft. Negative for: Tenderness Back: Positive for: Normal Inspection. Negative for: L CVA Tenderness, R CVA Tenderness Neurologic/Psych: Positive for: Alert, Oriented - Laboratory Results Urine POC: Negative - ECG O2 Sat by Pulse Oximetry: 96 Disposition - Clinical Impression Clinical Impression: Gastroenteritis - Patient ED Disposition Is Patient to be Admitted: No - Disposition Referrals: [facility] [Outside] Disposition: Routine/Home Disposition Time: 03:25 Condition: STABLE Additional Instructions: WILLARD RIOS, thank you for letting us take care of you today. Your provider was Robert Hamilton MD and you were treated for DIARRHEA. The emergency medical care you received today was directed at your acute symptoms. If you were prescribed any medication, please fill it and take as directed. It may take several days for your symptoms to resolve. Return to the Emergency Department if your symptoms worsen, do not improve, or if you have any other problems. Please contact your doctor or call one of the physicians/clinics you have been referred to that are listed on the Patient Visit Information form that is included in your discharge packet. Bring any paperwork you were given at discharge with you along with any medications you are taking to your follow up visit. Our treatment cannot replace ongoing medical care by a primary care provider outside of the emergency department. Thank you for allowing the [facility] team to be part of your care today. If you had an X-Ray or CT scan: A Radiologist will review the ED reading if any change in treatment is needed we will contact you. If you had a blood, urine, or wound culture: It will take several days for the results, if any change in treatment is needed we will contact you. If you had an STI test: It will take 48 hours for the results. Please call after 1 week if you have not heard back. Instructions: Viral Gastroenteritis, Adult (DC) Forms: [employer] (Kyrgyz) Print Language: LATVIAN
[2017-11-18 03:59] VITALS: BP 105/71; PULSE 66; O2SAT 100
== END 2017-11-18 04:04 | disposition home or self-care (01) ==
LOC: H.ER 00:17
DX: K52.9 Noninfective gastroenteritis and colitis, unspecified (principal)

== ENCOUNTER 2017-11-26 19:19 | Emergency (ER) | payer MEDICAID ==
[2017-11-26 19:32] VITALS: BP 111/74; PULSE 77; RESP 16; TEMP 98; O2SAT 98
[2017-11-26 20:11] LABS: SQUAMOUS EPITHIAL 10 /hpf (0-5); URINE BILIRUBIN NEGATIVE (NEGATIVE); URINE BLOOD NEGATIVE (NEGATIVE); URINE CLARITY CLOUDY (Clear); URINE COLOR YELLOW (YELLOW); URINE GLUCOSE (UA) NEG (Normal); URINE LEUKOCYTE ESTERASE TRACE Leu/uL (Negative); URINE PROTEIN NEGATIVE (NEGATIVE)
--- NOTE | 2017-11-26 20:19 | ED PDOC ---
HPI: Female Pain Time Seen by Provider: 11/26/17 19:34 Chief Complaint (Nursing): Female Genitourinary Chief Complaint (Provider): genital swelling History Per: Patient Onset/Duration Of Symptoms: Days (4) Associated Symptoms: denies: Nausea, Vomiting, Diarrhea, Loss Of Appetite, Constipation, Urinary Symptoms Additional Complaint(s): swelling LEFT side of vaginal area for 4 days worsening since onset constant. no urinary symptoms. denies vag bleed or dc denies trauma LMP ended 2 days ago Past Medical History Reviewed: Historical Data, Nursing Documentation, Vital Signs Vital Signs: Last Vital Signs Temp 98.0 F 11/26/17 19:29 Pulse 77 11/26/17 19:29 Resp 16 11/26/17 19:29 BP 111/74 11/26/17 19:29 Pulse Ox 98 11/26/17 19:29 - Medical History PMH: Denies: Diabetes, Hepatitis, HIV, HTN, Seizures, Sexually Transmitted Disease - Family History Family History: States: Unknown Family Hx - Immunization History Hx Tetanus Toxoid Vaccination: No Hx Influenza Vaccination: No Hx Pneumococcal Vaccination: No - Home Medications Home Medications: Ambulatory Orders Medication Instructions Recorded Acetaminophen [Tylenol] 1,000 mg PO PRN PRN 03/22/15 Ibuprofen [Motrin] 600 mg PO Q6 PRN #20 tab 03/22/15 Metoclopramide Hydrochloride 10 mg PO TID PRN #10 tab 03/22/15 [Reglan] Acetaminophen with Codeine 1 each PO Q6H PRN #15 tablet 11/29/15 [Tylenol with Codeine #3 Tablet] Ibuprofen 600 mg PO Q6H PRN #20 tab 11/29/15 Albuterol HFA [Ventolin HFA 90 1 puff IH Q4 PRN #1 inh 02/22/16 mcg/actuation (8 g)] Fluticasone Nasal [Flonase] 1 actuation NS BID #1 bottle 02/22/16 Ibuprofen [Motrin Tab] 1 tab PO Q6 PRN #15 tab 02/22/16 Oseltamivir [Tamiflu] 75 mg PO BID #9 cap 02/22/16 guaiFENesin/Dextromethorphan 1 - 2 tab PO Q12 #20 tab 02/22/16 [guaiFENesin/DM 600-30 mg] Promethazine HCl/Codeine 5 ml PO Q6H PRN #200 ml 05/26/16 [Prometh-Codein 6.25-10 mg/5 ml] Cyclobenzaprine [Cyclobenzaprine 10 mg PO BID #15 tab 08/06/16 HCl] Ibuprofen [Motrin Tab] 600 mg PO Q6 #30 tab 08/06/16 Fexofenadine/Pseudoephedrine 1 each PO BID PRN #12 tab.er.12h 09/13/16 [Nu-D 12 Hour Tablet] Prednisone 50 mg PO ONCE #3 tablet 09/13/16 Ciprofloxacin HCl [Cipro] 500 mg PO BID #20 tab 10/17/16 Fluconazole [Diflucan] 150 mg PO ACB #1 tab 05/09/17 Ibuprofen [Motrin] 600 mg PO Q6 #20 tab 05/09/17 Ibuprofen [Motrin] 600 mg PO TID 7 Days tab 09/07/17 Ibuprofen [Motrin Tab] 600 mg PO Q8 PRN #30 tab 11/26/17 - Allergies Allergies/Adverse Reactions: Allergies Allergy/AdvReac Type Severity Reaction Status Date / Time No Known Allergies Allergy Verified 11/18/17 00:23 Review of Systems ROS Statement: Except As Marked, All Systems Reviewed And Found Negative Constitutional: Negative for: Fever, Chills Gastrointestinal: Negative for: Abdominal Pain, Diarrhea, Constipation Genitourinary Female: Negative for: Dysuria, Frequency, Hematuria, Vaginal Discharge, Vaginal Bleeding Skin: Positive for: Lesions Physical Exam - Reviewed Nursing Documentation Reviewed: Yes Vital Signs Reviewed: Yes - Physical Exam Appears: Positive for: Non-toxic, No Acute Distress Head Exam: Positive for: ATRAUMATIC, NORMOCEPHALIC Skin: Positive for: Warm, Dry Pelvic Exam: Positive for: Mass (small palpable 1cm mass at LEFT posterior labia majora, no palpable swelling in vaginal canal/vulva, no skin changes/ lesions). Negative for: Active Bleeding, Discharge, Lesions Lymphatic: Negative for: Inguinal Node Tenderness - ECG O2 Sat by Pulse Oximetry: 98 - Physician Consult Information Physician Contacted: Yoel Rogers Outcome Of Conversation: To be further evaluated in office tomorrow. Disposition - Clinical Impression Clinical Impression: Labial swelling - Disposition Referrals: Yoel Rogers DO [Staff Provider] - 11/27/17 (CALL TOMORROW MORNING TO SETUP FOLLOWUP APPOINTMENT. LET THE OFFICE KNOW YOU WERE A PATIENT IN ER AND DR ROGERS IS TO EVALUATE YOU TODAY.) Disposition: Routine/Home Disposition Time: 20:20 Condition: STABLE Additional Instructions: YOU HAVE EITHER EARLY FOLLICULITIS OR EARLY BARTHOLIN'S GLAND CYST. PLEASE SEE DR ROGERS TOMORROW FOR FURTHER EVALUATION. Prescriptions: Ibuprofen [Motrin Tab] 600 mg PO Q8 PRN #30 tab PRN Reason: Pain, Moderate (4-7) Instructions: Bartholin's Gland Cyst, Folliculitis
== END 2017-11-26 21:05 | disposition home or self-care (01) ==
LOC: H.ER 19:19
DX: N90.89 Other specified noninflammatory disorders of vulva and perineum (principal)

== ENCOUNTER 2018-06-13 14:28 | Emergency (ER) | payer MEDICAID ==
[2018-06-13 14:58] VITALS: BP 113/74; PULSE 77; RESP 16; TEMP 98.8; O2SAT 97
--- NOTE | 2018-06-13 16:28 | ED PDOC ---
History of Present Illness History of Present Illness: 23 year old female with no past medical history who is presenting to the ED for evaluation of cough, nasal congestion, and body aches onset 2-3 days ago, Patient states that she began developing cough initially productive of white sputum and states that it has now become green. She reports that she has a sore throat only when she coughs and some chills. Patient admits that she tool Tylenol cold and flu around 9 am this morning. She denies any fevers, dizziness, nausea, vomiting, or diarrhea. Of note, patient adds that she has been having a mild headache with some photophobia. She states that she has not had the flu shot this season and reports that daughter was treated recently for strep but has already completed the course of antibiotics. PMD: none provided HPI: Influenza Time Seen by Provider: 06/13/18 15:04 Chief Complaint: Flu-like Symptoms Chief Complaint (Provider): Flu-like Symptoms History Per: Patient Exam Limitations: no limitations Onset/Duration Of Symptoms: Days Symptoms include: headache, bodyaches, sore throat, cough, nasal congestion. denies: fever, vomiting, diarrhea Past Medical History Reviewed: Historical Data, Nursing Documentation, Vital Signs Vital Signs: Last Vital Signs Temp 98.8 F 06/13/18 14:55 Pulse 77 06/13/18 14:55 Resp 16 06/13/18 14:55 BP 113/74 06/13/18 14:55 Pulse Ox 97 06/13/18 14:55 - Medical History PMH: No Chronic Diseases Denies: Diabetes, Hepatitis, HIV, HTN, Seizures, Sexually Transmitted Disease - Surgical History Surgical History: No Surg Hx - Family History Family History: States: Unknown Family Hx - Social History Current smoker - smoking cessation education provided: No Alcohol: Social Drugs: Denies - Immunization History Hx Tetanus Toxoid Vaccination: No Hx Influenza Vaccination: No Hx Pneumococcal Vaccination: No - Home Medications Home Medications: Ambulatory Orders Medication Instructions Recorded Acetaminophen [Tylenol] 1,000 mg PO PRN PRN 03/22/15 Ibuprofen [Motrin] 600 mg PO Q6 PRN #20 tab 03/22/15 Metoclopramide Hydrochloride 10 mg PO TID PRN #10 tab 03/22/15 [Reglan] Acetaminophen with Codeine 1 each PO Q6H PRN #15 tablet 11/29/15 [Tylenol with Codeine #3 Tablet] Ibuprofen 600 mg PO Q6H PRN #20 tab 11/29/15 Albuterol HFA [Ventolin HFA 90 1 puff IH Q4 PRN #1 inh 02/22/16 mcg/actuation (8 g)] Fluticasone Nasal [Flonase] 1 actuation NS BID #1 bottle 02/22/16 Ibuprofen [Motrin Tab] 1 tab PO Q6 PRN #15 tab 02/22/16 Oseltamivir Cap [Tamiflu] 75 mg PO BID #9 cap 02/22/16 guaiFENesin/Dextromethorphan 1 - 2 tab PO Q12 #20 tab 02/22/16 [guaiFENesin/DM 600-30 mg] Promethazine HCl/Codeine 5 ml PO Q6H PRN #200 ml 05/26/16 [Prometh-Codein 6.25-10 mg/5 ml] Cyclobenzaprine [Cyclobenzaprine 10 mg PO BID #15 tab 08/06/16 HCl] Ibuprofen [Motrin Tab] 600 mg PO Q6 #30 tab 08/06/16 Fexofenadine/Pseudoephedrine 1 each PO BID PRN #12 tab.er.12h 09/13/16 [Nu-D 12 Hour Tablet] Prednisone 50 mg PO ONCE #3 tablet 09/13/16 Ciprofloxacin HCl [Cipro] 500 mg PO BID #20 tab 10/17/16 Fluconazole [Diflucan] 150 mg PO ACB #1 tab 05/09/17 Ibuprofen [Motrin] 600 mg PO Q6 #20 tab 05/09/17 Ibuprofen [Motrin] 600 mg PO TID 7 Days tab 09/07/17 Ibuprofen [Motrin Tab] 600 mg PO Q8 PRN #30 tab 11/26/17 - Allergies Allergies/Adverse Reactions: Allergies Allergy/AdvReac Type Severity Reaction Status Date / Time No Known Allergies Allergy Verified 06/13/18 14:55 Review of Systems ROS Statement: Except As Marked, All Systems Reviewed And Found Negative Constitutional: Positive for: Chills. Negative for: Fever ENT: Positive for: Nose Congestion Respiratory: Positive for: Cough, Sputum Gastrointestinal: Negative for: Nausea, Vomiting, Diarrhea Neurological: Positive for: Headache. Negative for: Dizziness Physical Exam - Reviewed Nursing Documentation Reviewed: Yes Vital Signs Reviewed: Yes - Physical Exam Appears: Positive for: Non-toxic, No Acute Distress, Uncomfortable Head Exam: Positive for: ATRAUMATIC, NORMAL INSPECTION, NORMOCEPHALIC Skin: Positive for: Normal Color, Warm, DRY Eye Exam: Positive for: EOMI, Normal appearance, PERRL ENT: Positive for: Normal ENT Inspection Cardiovascular/Chest: Positive for: Regular Rate, Rhythm. Negative for: Murmur Respiratory: Positive for: Rhonchi (mild rhonchi mid lung not cleared with cough ). Negative for: Respiratory Distress Neurologic/Psych: Positive for: Alert, Oriented. Negative for: Motor/Sensory Deficits Medical Decision Making Medical Decision Making: Time: 15:38 Plan: --ED urne --Chest x-ray (PA/LAT) --Rapid Strep --Rapid Flu Scribe Attestation: Documented by, Migdalia Darden acting as a scribe for Nikole Verma PA-C. Provider Scribe Attestation: All medical record entries made by the Scribe were at my direction and personally dictated by me. I have reviewed the chart and agree that the record accurately reflects my personal performance of the history, physical exam, medical decision making, and the department course for this patient. I have also personally directed, reviewed, and agree with the discharge instructions and disposition. - ECG O2 Sat by Pulse Oximetry: 97 (RA) Pulse Ox Interpretation: Normal Disposition - Disposition Forms: [employer] (E[place]ian)
--- NOTE | 2018-06-13 17:03 | RAD ---
Date of service: 06/13/2018 HISTORY: shortness of breath, cough COMPARISON: 05/26/2016 TECHNIQUE: Chest PA and lateral FINDINGS: LUNGS: No active pulmonary disease. PLEURA: No significant pleural effusion identified. No pneumothorax apparent. CARDIOVASCULAR: No aortic atherosclerotic calcification present. Normal cardiac size. No pulmonary vascular congestion. OSSEOUS STRUCTURES: Thoracic dextroscoliosis. VISUALIZED UPPER ABDOMEN: Normal. OTHER FINDINGS: None. IMPRESSION: No active disease.
== END 2018-06-13 17:25 | disposition home or self-care (01) ==
LOC: H.ER 14:28
DX: J11.1 Influenza due to unidentified influenza virus with other respiratory manifestations (principal)